=== PATIENT | female | born 1995 | race Caucasian/White ===

== ENCOUNTER 2023-12-24 08:00 | Outpatient (CLI) | payer OTHER ==
[2023-12-24 16:16] LABS: BILIRUBIN,URINE NEGATIVE (NEGATIVE); GLUCOSE, URINE (UA) NEGATIVE (NEGATIVE); KETONES,URINE (UA) NEGATIVE (NEGATIVE); LEUKOCYTE ESTERASE, URINE NEGATIVE (NEGATIVE); NITRITE,URINE NEGATIVE (NEGATIVE); OCCULT BLOOD,URINE NEGATIVE (NEGATIVE); PROTEIN,URINE NEGATIVE (NEGATIVE); UROBILINOGEN,URINE 0.2 (NORMAL) E.U./dL (NORMAL)
[2023-12-24 16:37] LABS: BACTERIA,URINE Many /HPF (None Seen); CLARITY,URINE CLEAR (CLEAR); RBC,URINE None Seen /HPF (0-5); SQUAMOUS EPITHELIAL CELL,UR MANY Squamous (<= Few); WBC,URINE 0-3 /HPF (0-5)
== END 2023-12-24 23:59 | disposition home or self-care (01) ==
LOC: LAB.WC 08:00
PROVIDERS: ATTEND Obstetrics & Gynecology
DX: Z34.90 Encounter for supervision of normal pregnancy, unspecified, unspecified trimester (principal)
CPT/HCPCS: 81001; 87086

== ENCOUNTER 2023-12-31 06:43 | Outpatient (CLI) | payer OTHER ==
--- NOTE | 2023-12-31 12:42 | Ultrasound Report ---
PROCEDURE: OB 1st Trimester w/TV INDICATIONS: POSITIVE TEST OUTSIDE/PRIOR DATING DATA: Last menstrual period (LMP): 11/12/2023. LMP-based estimated date of delivery (MIROSLAVA): 08/18/2024. First dating scan (date and location): Today's exam. Estimated date of delivery (MIROSLAVA) from first dating scan: 08/19/2024. TECHNIQUE: Real-time scanning was performed of the fetus and maternal pelvic organs, with image documentation. Endovaginal scanning was also performed to better visualize the fetus and maternal ovaries. COMPARISON: None. FINDINGS: Intrauterine gestational sac present. Embryo: Present, measuring 0.9 cm, corresponding to 6 weeks 6 days. Heart rate: 137 bpm. Other: No perigestational fluid collection. Measurement variability in dating: +/- 4 weeks by LMP, +/- 7 days by mean sac diameter (use before 6 weeks gestation if crown-rump length not able to be measured), +/- 5 days by crown-rump length (6-12 weeks gestation). Maternal organs: Ovaries appear within normal limits. IMPRESSION: Single living intrauterine at 6 weeks 6 days, MIROSLAVA of 08/19/2024 based on today's exam. Reviewed by: Humble Leiva MD on 12/31/2023 12:41 PM PDT Approved by: Humble Leiva MD on 12/31/2023 12:41 PM PDT Station ID: [id number]
== END 2023-12-31 06:44 | disposition home or self-care (01) ==
LOC: DI 06:43
PROVIDERS: ATTEND Obstetrics & Gynecology
DX: Z34.91 Encounter for supervision of normal pregnancy, unspecified, first trimester (principal)

== ENCOUNTER 2024-01-18 16:11 | Outpatient (CLI) | payer OTHER ==
[2024-01-18 20:35] LABS: BASOPHILS % (AUTO) 0.4 %; EOSINOPHILS % (AUTO) 0.5 %; HCT - HEMATOCRIT 41.1 % (37.0-47.0); HGB - HEMOGLOBIN 13.2 g/dL (12.0-16.0); LYMPHOCYTES # (AUTO) 1.6 10^3/uL (1.5-3.5); LYMPHOCYTES % (AUTO) 21.8 %; MEAN CORPUSCULAR HGB CONC 32.1 g/dL (32.0-36.0); MEAN CORPUSCULAR VOLUME 87.1 fL (81.0-99.0); MEAN PLATELET VOLUME 10.1 fL (7.9-10.8); MONOCYTES # (AUTO) 0.5 10^3/uL (0.0-1.0); MONOCYTES % (AUTO) 6.7 %; NEUTROPHILS # (AUTO) 5.3 10^3/uL (1.5-6.6); NEUTROPHILS % (AUTO) 70.3 %; PLT - PLATELET COUNT 320 10^3/uL (130-450); RED BLOOD COUNT 4.72 10^6/uL (4.20-5.40); RED CELL DISTRIBUTION WIDTH 13.3 % (12.0-15.0); WHITE BLOOD COUNT 7.5 x10^3/uL (4.8-10.8)
== END 2024-01-18 16:12 | disposition home or self-care (01) ==
LOC: LAB.N 16:11
PROVIDERS: ATTEND Obstetrics & Gynecology
DX: Z34.90 Encounter for supervision of normal pregnancy, unspecified, unspecified trimester (principal)
CPT/HCPCS: 36415; 85025; 86592; 86762; 86787; 86803; 86850; 86900; 86901; 87340; 87389

== ENCOUNTER 2024-02-18 08:00 | Outpatient (CLI) | payer OTHER ==
[2024-02-18 20:25] LABS: CHLAMYDIA TRACHOMATIS DNA NEGATIVE (NEGATIVE); NEISSERIA GONORRHOEAE DNA NEGATIVE (NEGATIVE); TRICHOMONAS VAGINALIS DNA NEGATIVE (NEGATIVE)
== END 2024-02-18 23:59 | disposition home or self-care (01) ==
LOC: LAB.WC 08:00
PROVIDERS: ATTEND Obstetrics & Gynecology
DX: Z11.3 Encounter for screening for infections with a predominantly sexual mode of transmission (principal)
CPT/HCPCS: 87491; 87591; 87661

== ENCOUNTER 2024-04-05 07:53 | Outpatient (CLI) | payer OTHER ==
--- NOTE | 2024-04-05 21:20 | Ultrasound Report ---
PROCEDURE: OB Anatomy Scan INDICATIONS: SUPERVISION OF OUTSIDE/PRIOR DATING DATA: Last menstrual period (LMP): 11/12/2023. LMP-based estimated date of delivery (MIROSLAVA): 08/18/2024. First dating scan (date and location): 12/31/2023. Estimated date of delivery (MIROSLAVA) from first dating scan: 08/19/2024. The below data below was generated using the clinical MIROSLAVA of 08/18/2024 TECHNIQUE: Real-time scanning was performed of the fetus, with image documentation and biometric measurements. COMPARISON: OB ultrasound 12/31/2023 FINDINGS: General: A single living intrauterine gestation is present. Presentation: Breech Placenta: Placental position is anterior, without previa. Questionable marginal placenta. Amniotic fluid index: 15.8 cm, within normal limits for gestational age. heart rate: 153 beats per minute. Maternal cervical canal: 5.6 cm long; normal length is 2.5 cm or more. biometrics: Biparietal diameter: 5.3 cm 20 weeks 1 day 94th percentile Head circumference: 19.3 cm 21 weeks 4 days 77th percentile Abdominal circumference: 16.2 cm 21 weeks 2 days 62nd percentile Femur length: 3.5 cm 21 weeks 0 days 51st percentile Estimated gestational age from initial scan: 20 weeks 5 days Composite gestational age from present scan: 21 weeks 4 days Estimated weight and percentile: 408 g 73rd percentile Measurement variability in biometric dating: +/- 10 days from 12-20 weeks gestation, +/- 2 weeks from 20-30 weeks gestation, +/- 3 weeks at 30 weeks gestation or later. Anatomic survey: Neuro: Ventricles are normal at less than 10 mm. Cisterna magna is normal at 3-11 mm. Cerebellum i s normal in size and morphology. Nuchal skin fold: Normal at less than 6 mm between 14 and 20 weeks gestational age. Face: Nose and lips, facial profile are normal. Spine: No evidence for spina bifida. Heart: 4-chambered heart is present, with normal ventricular outflow tracts. Diaphragm: Diaphragm is intact. Stomach: Left-sided stomach is present. Kidneys: No hydronephrosis. Normal is less than 5 mm in 2nd trimester, less than 7 mm in 3rd trimester. Cord: 3 vessel cord has orthotopic insertion. Bladder: Normal in size. Extremities: All 4 extremities are visualized. IMPRESSION: Single live intrauterine with gestational age of 21 weeks 4 days. Anatomy is within normal limits. Questionable marginal placenta. Reviewed by: Niesha Vance MD on 04/05/2024 9:19 PM PDT Approved by: Niesha Vance MD on 04/05/2024 9:19 PM PDT Station ID: [id number]
== END 2024-04-05 07:54 | disposition home or self-care (01) ==
LOC: DI 07:53
PROVIDERS: ATTEND Obstetrics & Gynecology
DX: Z34.92 Encounter for supervision of normal pregnancy, unspecified, second trimester (principal)

== ENCOUNTER 2024-04-11 11:20 | Outpatient (CLI) | payer OTHER | END 2024-04-11 11:21 | disposition home or self-care (01) | LOC: LAB.N 11:20 | PROVIDERS: ATTEND Obstetrics & Gynecology | DX: Z34.90 Encounter for supervision of normal pregnancy, unspecified, unspecified trimester (principal); Z36.0 Encounter for antenatal screening for chromosomal anomalies | CPT/HCPCS: 36415; 81511 ==

== ENCOUNTER 2024-05-21 14:53 | Outpatient (CLI) | payer OTHER ==
--- NOTE | 2024-05-21 23:49 | Ultrasound Report ---
PROCEDURE: OB Limited INDICATIONS: PLACENTA PREVIA OUTSIDE/PRIOR DATING DATA: Last menstrual period (LMP): 11/12/2023. LMP-based estimated date of delivery (MIROSLAVA): 08/18/2024. First dating scan (date and location): 12/31/2023. Estimated date of delivery (MIROSLAVA) from first dating scan: 08/19/2024. The below data below was generated using the clinical MIROSLAVA of 08/18/2024 TECHNIQUE: Real-time scanning was performed of the fetus, with image documentation. Endovaginal scanning: Not performed COMPARISON: 04/05/2024 FINDINGS: A single living intrauterine gestation is present. Presentation: Breech Placenta: Placental position is anterior, without previa. Amniotic fluid index: 20.1 cm, 86th percentile for gestational age. Largest vertical pocket measured is 6.3 cm heart rate: 136 beats per minutes. Maternal cervical canal: 6.1 cm long; normal length is 2.5 cm or more. Estimated gestational age from initial scan: 27 weeks and 2 days. IMPRESSION: Single living intrauterine gestation with estimated gestational age of approximately 27 weeks and 2 d ays. No evidence for placental previa. Reviewed by: Manjit Love MD on 05/21/2024 11:47 PM PDT Approved by: Manjit Love MD on 05/21/2024 11:47 PM PDT Station ID: [id number]
== END 2024-05-21 14:54 | disposition home or self-care (01) ==
LOC: DI 14:53
PROVIDERS: ATTEND Obstetrics & Gynecology
DX: O44.02 Complete placenta previa NOS or without hemorrhage, second trimester (principal); Z3A.27 27 weeks gestation of pregnancy

== ENCOUNTER 2024-05-23 15:59 | Outpatient (CLI) | payer OTHER ==
[2024-05-23 21:10] LABS: HCT - HEMATOCRIT 36.4 % (37.0-47.0); HGB - HEMOGLOBIN 11.9 g/dL (12.0-16.0); MEAN CORPUSCULAR HEMOGLOBIN 28.9 pg (27.0-31.0); MEAN CORPUSCULAR HGB CONC 32.7 g/dL (32.0-36.0); MEAN CORPUSCULAR VOLUME 88.3 fL (81.0-99.0); MEAN PLATELET VOLUME 10.3 fL (7.9-10.8); RED BLOOD COUNT 4.12 10^6/uL (4.20-5.40); WHITE BLOOD COUNT 10.1 x10^3/uL (4.8-10.8)
[2024-05-25 03:11] LABS: RPR Non Reactive (Non Reactive)
== END 2024-05-23 16:00 | disposition home or self-care (01) ==
LOC: LAB.N 15:59
PROVIDERS: ATTEND Obstetrics & Gynecology
DX: O09.892 Supervision of other high risk pregnancies, second trimester (principal)
CPT/HCPCS: 36415; 82950; 85027; 86592; 86850

== ENCOUNTER 2024-08-17 17:19 | Inpatient (IN) ==
[2024-08-17] MEDS ORDERED: OXYTOCIN 10 UNIT/ML VIAL IM PRN (17:57)
[2024-08-17] MEDS ORDERED: NIFEdipine 10 MG CAPSULE PO PRN (17:57)
[2024-08-17] MEDS ORDERED: LABETALOL 20 MG/4 ML SYRINGE IVP PRN ×3 (17:57)
[2024-08-17] MEDS ORDERED: fentaNYL 100 MCG/2 ML VIAL IVP PRN (17:57)
[2024-08-17] MEDS ORDERED: hydrALAZINE INJ 20 MG/ML VIAL IVP PRN ×2 (17:57)
[2024-08-17] MEDS ORDERED: lidocaine 1% 20 ML MDV ID PRN (17:57)
[2024-08-17] MEDS ORDERED: CARBOPROST TROMETHAMINE 250 MCG/ML VIAL IM PRN (17:57)
[2024-08-17] MEDS ORDERED: SODIUM CHLORIDE FLUSH 0.9% 10 ML SYRINGE IVP PRN (17:57)
[2024-08-17] MEDS ORDERED: ONDANSETRON ODT 4 MG TABLET TL PRN (17:57)
[2024-08-17] MEDS ORDERED: TRANEXAMIC ACID IN NACL 1,000 MG/100 ML BAG IV PRN (17:57)
[2024-08-17] MEDS ORDERED: OXYTOCIN/SODIUM CHLORIDE 500 ML IV PRN (17:57)
[2024-08-17 18:32] LABS: BASOPHILS % (AUTO) 0.3 %; EOSINOPHILS # (AUTO) 0.1 10^3/uL (0.0-0.7); EOSINOPHILS % (AUTO) 1.3 %; HCT - HEMATOCRIT 35.6 % (37.0-47.0); HGB - HEMOGLOBIN 11.2 g/dL (12.0-16.0); LYMPHOCYTES # (AUTO) 1.8 10^3/uL (1.5-3.5); LYMPHOCYTES % (AUTO) 19.4 %; MEAN CORPUSCULAR HEMOGLOBIN 26.2 pg (27.0-31.0); MEAN CORPUSCULAR HGB CONC 31.5 g/dL (32.0-36.0); MEAN CORPUSCULAR VOLUME 83.4 fL (81.0-99.0); MEAN PLATELET VOLUME 11.4 fL (7.9-10.8); MONOCYTES # (AUTO) 0.7 10^3/uL (0.0-1.0); MONOCYTES % (AUTO) 7.2 %; NEUTROPHILS # (AUTO) 6.5 10^3/uL (1.5-6.6); NEUTROPHILS % (AUTO) 71.3 %; PLT - PLATELET COUNT 265 10^3/uL (130-450); RED BLOOD COUNT 4.27 10^6/uL (4.20-5.40); RED CELL DISTRIBUTION WIDTH 14.4 % (12.0-15.0); WHITE BLOOD COUNT 9.1 x10^3/uL (4.8-10.8)
[2024-08-17 18:45] LABS: ALBUMIN 3.5 g/dL (3.2-5.5); ALBUMIN/GLOBULIN RATIO 1.5 (1.0-2.2); BILIRUBIN,TOTAL 0.3 mg/dL (0.2-1.0); CREATININE 0.5 mg/dL (0.6-1.3); POTASSIUM 3.6 mmol/L (3.5-4.5); TOTAL PROTEIN 5.9 g/dL (6.4-8.9)
[2024-08-17] MEDS ORDERED: miSOPROStoL 100 MCG TABLET ONE (19:49)
[2024-08-17] MEDS: miSOPROStoL 100 MCG TABLET VG SCH (19:57)
--- NOTE | 2024-08-17 22:13 | HISTORY & PHYSICAL EXAMINATION ---
Admit History Smoking Status: Never smoker Other Maternal History Other Maternal History: HPI: Gale is a 29 yo at 39w6d who is admitted for elective IOL. She was seen in clinic on day of admission. SVE closed, cephalic presentation confirmed. Discussed risks/benefits of elective IOL and consents were reviewed and signed. She declines contractions, LOF, VB. + FM. 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 Has training out of town in September. 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 Heart Flutters: Likely physiologic changes. Will assess if they happen more. Only last seconds and resolve when she 'Coughs them out" Pre- Weight:131.0 BMI: 24.05 Blood type: A+ Antibody: negative CBC: PLT 320 HCT 41.1 HGB 13.2 RUB: immune VZV: immune HBsAg: negative HepC: N-R RPR/AB-EIA:N-R HIV: N-R PAP:late 2020 - normal GC/CT: Recollected 02/17- Negative HSV:Denies in self and partner Genetic testing: quad screen neg 04/11 Covid: Flu: 07/06 FAS: 04/05/2024 Placenta: Anterior; placenta previa, right at edge of cervix. 05/21 placenta no longer a previa or even low. Cord: 3VC ADIS: 15.8 cm EFW: 408g/ 73rd%tile RPR- NR 50gm OGCT:77 TDAP: 06/08 Breast Pump: 06/08 3rd trimester H/H 11.9/36.4 PLT 292 GBS: Negative RSV 07/06/2024 Delivery plan: Contraception: condoms/ or possibly Nexplanon PE: Vitals signs reviewed in [facility]: NAD Resp: non labored respirations Abd: gravid, non tender. EFW 3400-3600g Ext: minimal LE edema monitoring on admission: FHTs: 130s bpm baseline, + accel, - decel, mod variability Ladd: 1-3 min vs irritability, pt not feeling contractions FHTs: Cat 1 Labs: admission CBC, CMP, T&S reviewed A/P: 29 yo at 39w6d who is admitted for elective IOL. - Elective IOL - GBS neg - Rh + - Rubella immune - Varicella immune - We have discussed options for initiating IOL, plan for vaginal misoprostol and will reassess in the AM or sooner PRN. We have also discussed possible use of cervical ripening balloon, pitocin, and AROM. - Pain management per patient request Kip Salmeron MD HPI Current : Vital Signs Temperature 98.2 F 08/17/24 18:00 Pulse Rate 82 08/17/24 18:00 Respiratory Rate 18 08/17/24 18:00 Blood Pressure 122/77 08/17/24 18:00 Temperature 98.2 F 08/18/24 08:27 Pulse Rate 79 08/18/24 08:27 Respiratory Rate 16 08/18/24 08:27 Blood Pressure 107/66 08/18/24 08:27 O2 Saturation 97 08/18/24 08:27 Meds/Allgy Home Medications Ambulatory Orders Medication Instructions Recorded Confirmed acetaminophen 325 mg tablet 325 mg PO Q6H PRN 07/20/24 08/17/24 (Tylenol) multivitamin (Daily Multi-Vitamin 1 tab PO QDAY 07/20/24 08/17/24 tablet) psyllium husk (aspartame) 3 gram 1 packet PO QDAY 07/20/24 08/17/24 oral powder packet (Daily Fiber (psyllium-aspartame)) Allergies Allergies Allergy/AdvReac Type Severity Reaction Status Date / Time Penicillins Allergy Intermediate Rash Verified 07/20/24 13:15 [facility] Medical History Medical History (Updated 08/10/24 @ 10:01 by Suly Schilling MD) Thyroid disorder (11/12/23) Surgical History Surgical History (Updated 07/20/24 @ 13:24 by Merced Azul MA) [place] teeth extracted 2012 Social History Social History (Updated 07/20/24 @ 13:25 by Merced Azul MA) Smoking Status: Never smoker Do you vape?: No Patient requests smoking cessation consult: No Initiate information on smoking cessation: No Living arrangement: At home Living Condition: With spouse/s.o. Support Person: Yes Relationship: Spouse Physical Abdominal Exam Vital Signs: Temp Pulse Resp BP Pulse Ox 98.2 F 79 16 107/66 97 08/18/24 08:27 08/18/24 08:27 08/18/24 08:27 08/18/24 08:27 08/18/24 08:27 Plan for Labor Plan For Labor I expect patient to be DC'd or transferred within 96 hours.: Yes Conclusion/Plan Lab Results 08/17/24 18:25 08/17/24 18:15
[2024-08-18] MEDS: SODIUM CHLORIDE FLUSH 0.9% 10 ML SYRINGE IVP SCH (08:23)
--- NOTE | 2024-08-18 10:47 | PROVIDER PROGRESS NOTE ---
Labor Progress Note Labor Progress Note Labor Progress Note/Additional Text: S: Jasmin is feeling a little more uncomfortable with contractions. Discussed proceeding with cervical ripening balloon and she is in agreement. [facility] 1.5/30/-3, moderate, mid position Speculum exam performed for placement of cervical ripening balloon, placed without difficulty, 80cc in uterine balloon, 40cc in vaginal balloon. She did tolerate well. monitoring: FHTs: 150s bpm baseline, + accel, + late decelerations (positional, when lying flat on back for balloon placement), mod variability [place]: 1-5 min Cat 2, overall reassuring A/P: 29 yo at 40w0d undergoing elective IOL: - S/p vaginal misoprostol overnight (100ug). Cervical ripening balloon placed, plan to remove in 12 hrs, will reassess if falls out earlier. We have discussed possibly starting pitocin if contractions space out. - Late decelerations resolve with repositioning, will continue to monitor - Pain management per her request. Kip Salmeron MD
--- NOTE | 2024-08-18 12:08 | PHARMACY PROGRESS NOTE ---
Best Possible Medication History Admit Date and Time: 08/17/24 1757 Home Medications Medication Instructions Recorded Confirmed Type acetaminophen 325 mg tablet 325 mg PO Q6H PRN fever or pain 07/20/24 08/18/24 History (Tylenol) polyethylene glycol 3350 17 gram 17 g PO DAILY PRN constipation 08/18/24 History oral powder packet (Miralax) Processed by: Pharmacy Medications reviewed in ED?: No Medication History completed: Yes Patient Interview: Completed (by nursing staff as patient was otherwise occupied) Secondary Source(s): Insurance records [facility] Statement: As the person ultimately responsible for medication therapy, providers are able to order a medication from an existing home medication list in [facility] via the "Reconcile Routine" prior to Confirmation of that medication by geophysical support specialist. Such practice is discouraged except when the physician, in their clinical judgment, deems that a medical need exists for a medication without regard to previous use.
--- NOTE | 2024-08-18 13:32 | ANESTHESIA PROCEDURE NOTE ---
Pre-Anesthesia VS, & Labs Diagnosis Surgical Diagnosis:: Active labor Procedure Procedure: vaginal delivery Vitals Vital Signs: Temp Pulse Resp BP Pulse Ox 36.6 C 50 L 16 126/71 97 08/18/24 11:14 08/18/24 11:14 08/18/24 11:14 08/18/24 11:14 08/18/24 08:27 Height (in): 5 ft 3 in Weight (kg): 75 kg Body Mass Index: 29.2 BMI Classification: Overweight NPO NPO: Other (clear liquids during labor) Is Patient ?: Yes Estimated Due Date:: 08/18/24 Comments:: Lab Results Current Lab Results: Laboratory Tests 08/17/24 18:25: WBC 9.1, RBC 4.27, Hgb 11.2 L, Hct 35.6 L, MCV 83.4, MCH 26.2 L, MCHC 31.5 L, RDW 14.4, Plt Count 265, MPV 11.4 H, Neut # (Auto) 6.5, Lymph # (Auto) 1.8, [place] # (Auto) 0.7, Eos # (Auto) 0.1, Baso # (Auto) 0.0, Absolute Nucleated RBC 0.00, Nucleated RBC % 0.0 08/17/24 18:15: Sodium 135, Potassium 3.6, Chloride 108, Carbon Dioxide 21, Anion Gap 6.0, BUN 15, Creatinine 0.5 L, Estimated GFR (MDRD) 146, Glucose 98, Calcium 9.0, Total Bilirubin 0.3, AST 18, ALT 13, Alkaline Phosphatase 161 H, T otal Protein 5.9 L, Albumin 3.5, Globulin 2.4, Albumin/Globulin Ratio 1.5, Blood Type A POSITIVE, Antibody Screen NEGATIVE Lab results reviewed: Yes 08/17/24 18:25 08/17/24 18:15 Meds/Allgy Home Medications Ambulatory Orders Medication Instructions Recorded Confirmed acetaminophen 325 mg tablet 325 mg PO Q6H PRN fever or pain 07/20/24 08/18/24 (Tylenol) polyethylene glycol 3350 17 gram 17 g PO DAILY PRN constipation 08/18/24 08/18/24 oral powder packet (Miralax) Allergies Allergies Allergy/AdvReac Type Severity Reaction Status Date / Time Penicillins Allergy Intermediate Rash Verified 07/20/24 13:15 [facility] Medical History Medical History Thyroid disorder (11/12/23) Surgical History Surgical History [place] teeth extracted 2012 Social History Social History Smoking Status: Never smoker Do you vape?: No Patient requests smoking cessation consult: No Initiate information on smoking cessation: No Living arrangement: At home Living Condition: With spouse/s.o. Support Person: Yes Relationship: Spouse Anesthesia Exam (Expanded) Exam General: Alert, Oriented x3 and Cooperative Mouth Openin Fingerbreadth Neck Mobility: Normal Mallampati classification: II Thyromental Distance: 4-6 cm Mental/Cognitive Status: Alert/Oriented X3 and Normal for patient Plan Plan Anesthesia Type: Epidural Consent for Procedure(s) Verified and Reviewed: Yes Code Status: Attempt Resuscitation ASA Classification ASA classification: 2-Mild systemic disease Is this case an emergency?: No
[2024-08-18] MEDS ORDERED: LIDOCAINE 2%-EPI 1:100000 20 ML MDV ONE (13:41)
[2024-08-18] MEDS ORDERED: ROPIVACAINE 0.2% 200 MG/100 ML BAG EP ONE (13:41)
[2024-08-18] MEDS ORDERED: fentaNYL 100 MCG/2 ML VIAL ONE (13:41)
[2024-08-18] MEDS: LACTATED RINGERS 1,000 ML IV PRN ×2 (14:56→14:58)
[2024-08-18] MEDS: diphenhydrAMINE INJ 50 MG/ML VIAL IVP ONE (16:30)
[2024-08-18] MEDS: OXYTOCIN/SODIUM CHLORIDE 500 ML IV SCH (18:44)
[2024-08-18] MEDS: ROPIVACAINE 0.2% 200 MG/100 ML BAG EP PRN (19:57)
[2024-08-18] MEDS: ACETAMINOPHEN 325 MG TABLET PO PRN (20:35)
--- NOTE | 2024-08-18 20:41 | PROVIDER PROGRESS NOTE ---
Labor Progress Note Labor Progress Note Labor Progress Note/Additional Text: Jasmin was evaluated at 1604 and found to be 6cm, checked again 2 hours later and still 6cm. We discussed placement of IUPC and augmentation with pitocin and she was in agreement. She has now progressed to complete dilation and + 2 station, plan to start pushing. FHTs Cat 2 with intermittent periods of late decelerations which improve with repositioning and fluid bolus. She has recently had an elevated temperature of 100.2. If progresses to a fever, will plan to start antibiotics. Kip Salmeron MD
[2024-08-18] MEDS: ONDANSETRON 4 MG/2 ML VIAL IVP PRN (21:07)
[2024-08-18] MEDS: SODIUM CHLORIDE 0.9% IV SCH (21:11)
[2024-08-18] MEDS: GENTAMICIN IV SCH (21:11)
[2024-08-18] MEDS ORDERED: CLINDAMYCIN 900 MG/50 ML 900 MG/50 ML BAG IV ONE (21:29)
[2024-08-18] MEDS: CLINDAMYCIN 900 MG/50 ML 50 ML IV SCH (21:32)
[2024-08-18] MEDS: METHYLERGONOVINE 0.2 MG/ML VIAL IM PRN (22:36)
[2024-08-18] MEDS: miSOPROStoL 200 MCG TABLET BC PRN (22:41)
[2024-08-18] MEDS ORDERED: LABETALOL 5 MG/1 ML 20 ML MDV IVP PRN (22:54)
[2024-08-18] MEDS ORDERED: NALOXONE 0.4 MG/ML VIAL IVP PRN (22:54)
[2024-08-18] MEDS ORDERED: OXYTOCIN/SODIUM CHLORIDE 500 ML IV PRN (22:54)
[2024-08-18] MEDS ORDERED: NIFEdipine 10 MG CAPSULE PO PRN (22:54)
[2024-08-18] MEDS ORDERED: LABETALOL 20 MG/4 ML SYRINGE IVP PRN ×2 (22:54)
[2024-08-18] MEDS ORDERED: SIMETHICONE CHEW 80 MG TABLET PO PRN (22:54)
[2024-08-18] MEDS ORDERED: oxyCODONE 5 MG TABLET PO PRN (22:54)
[2024-08-18] MEDS ORDERED: hydrALAZINE INJ 20 MG/ML VIAL IVP PRN ×2 (22:54)
--- NOTE | 2024-08-18 23:05 | DELIVERY NOTE ---
Delivery Note Labor Labor: positive Other (elective IOL with misoprostol, followed by cervical ripening balloon. SROM followed by augmentation with pitocin.) Delivery Method Delivery Method: positive Spontaneous vaginal delivery Cervical Ripening Method Cervical Ripening Method: positive Balloon device and Misoprostil Presentation Presentation: positive Vertex and VAMSI - left occiput anterior Nuchal Cord Nuchal Cord: positive None Amniotic Fluid Description Amniotic Fluid Description: positive Clear Episiotomy Type Episiotomy Type: positive None Laceration Laceration: positive 1st degree and Labial (right) Suture Suture Type: positive Other (Rapide) Suture Size: positive 3-0 Delivery Outcome Delivery Outcome: positive Livebirth [place]: positive Placed in direct skin contact with mother, Stimulated and Warmed [place] sex: positive Male Cord Cord: positive 3 vessels Placenta Placenta: positive Intact and Spontaneous Estimated Blood Loss Estimated Blood Loss (in cc): 394 Delivery Comments (Free Text/Narrative) Delivery Comments (Free Text/Narrative): I was called to the bedside for patient complete and ready to start pushing. Ju st after starting pushing, Jasmin had a fever to 100.8, along with tachycardia. Gentamycin/Clindamycin started for chorioamnionitis. She pushed with excellent effort and steady descent. The anterior shoulder delivered easily with maternal effort and gentle downward pressure followed by the remainder of the body. The was placed on the mother's abdomen. After 60 sec the cord was clamped times two and cut. Cord blood collected. Pitocin was started. The placenta was delivered intact. Intermittent oozing and lower uterine segment atony was noted and IM methergine followed by 600mcg [place] misoprostol was given. The right labial laceration was repaired with 3-0 Vicryl Rapide. The 1st degree laceration was repaired with figure of eight stitch of 3-0 Vicryl Rapide. Perineal hemostasis noted at completion of procedure. Kip Salmeron MD
[2024-08-19] MEDS: IBUPROFEN 600 MG TABLET PO PRN (00:09)
[2024-08-19] MEDS ORDERED: CLINDAMYCIN 900 MG/50 ML 900 MG/50 ML BAG IV ONE (02:24)
[2024-08-19] MEDS: ACETAMINOPHEN 500 MG TABLET PO PRN (02:29)
[2024-08-19] MEDS: CLINDAMYCIN 900 MG/50 ML 900 MG/50 ML BAG IV SCH (05:37)
[2024-08-19] MEDS: DOCUSATE SODIUM 100 MG CAPSULE PO SCH (09:14)
--- NOTE | 2024-08-19 10:02 | PROVIDER PROGRESS NOTE ---
Subjective Prog Note Date Prog Note Date: 08/19/24 Prog Note Time: 09:49 Subjective Subjective: Jasmin is PPD #1 s/p late last evening. She is feeling very well this morning. She denies perineal pain or swelling. Bleeding has been decreasing. She has been up and ambulating without lightheadedness or dizzines. She is breast-feeding with adequate support. No concerns or questions at this time. Current Medications Current Medications Current Medications: Current Medications Generic Name Dose Route Start Last Admin Trade Name Demarco PRN Reason Stop Dose Admin Acetaminophen 1,000 mg 08/18/24 22:54 08/19/24 02:29 Acetaminophen 500 Mg Tablet PO 1,000 mg Q8HR PRN Administration Mild Pain or Fever>38C(100.4F) Carboprost Tromethamine 250 mcg 08/17/24 17:57 Carboprost Tromethamine 250 Mcg/Ml Vial IM 08/22/24 17:57 Q15M PRN Step 4: Hemorrhage protocol Docusate Sodium 100 mg 08/19/24 09:00 08/19/24 09:14 Docusate Sodium 100 Mg Capsule PO 100 mg BID MABEL Administration Hydralazine HCl 5 - 20 mg 08/17/24 17:57 Hydralazine Inj 20 Mg/Ml Vial IVP Q20M PRN SBP >160 or DBP >110 Protocol Hydralazine HCl 10 mg 08/17/24 17:57 Hydralazine Inj 20 Mg/Ml Vial IVP 08/22/24 17:57 .ONCE PRN Step 9 of Labetalol protocol Protocol Hydralazine HCl 10 mg 08/18/24 22:54 Hydralazine Inj 20 Mg/Ml Vial IVP .ONCE PRN SBP> or= 160 OR DBP> or= 110 Protocol Hydralazine HCl 5 - 10 mg 08/18/24 22:54 Hydralazine Inj 20 Mg/Ml Vial IVP Q20M PRN SBP >=160 and/or DBP >=110 Protocol Lactated Ringer's 1,000 mls @ 100 mls/hr 08/17/24 17:57 08/19/24 01:00 Lr IV 0 mls/hr .Q10H PRN Infusion Save for active labor Lactated Ringer's 1,000 mls @ 999 mls/hr 08/17/24 17:57 08/19/24 02:33 Lr IV 08/20/24 17:56 Infused ONCE PRN Infusion distress Clindamycin/Sodium Chloride 900 mg in 50 mls @ 50 mls/hr 08/19/24 05:30 08/19/24 06:39 Cleocin 900 Mg/50 Ml IV 08/19/24 14:29 Infused Q8H MABEL Infusion Ibuprofen 600 mg 08/18/24 22:54 08/19/24 05:38 Ibuprofen 600 Mg Tablet PO 600 mg Q6HR PRN Administration Moderate Pain (Level 4-6) Labetalol HCl 20 - 80 mg 08/17/24 17:57 Labetalol 20 Mg/4 Ml Syringe IVP Q10M PRN SBP >160 or DBP >110 Protocol Labetalol HCl 20 mg 08/17/24 17:57 Labetalol 20 Mg/4 Ml Syringe IVP 08/22/24 17:57 .ONCE PRN Step 9 of nifedipine protocol Protocol Labetalol HCl 40 mg 08/17/24 17:57 Labetalol 20 Mg/4 Ml Syringe IVP 08/22/24 17:57 .ONCE PRN Step 9 of hydrALAZine protocol Protocol Labetalol HCl 20 - 80 mg 08/18/24 22:54 Labetalol 5 Mg/1 Ml 20 Ml Mdv IVP Q10M PRN SBP> or= 160 OR DBP> or= 110 Protocol Labetalol HCl 20 - 40 mg 08/18/24 22:54 Labetalol 20 Mg/4 Ml Syringe IVP Q10M PRN SBP> or= 160 OR DBP> or= 110 Protocol Labetalol HCl 20 mg 08/18/24 22:54 Labetalol 20 Mg/4 Ml Syringe IVP .ONCE PRN SBP >=160 and/or DBP >=110 Protocol Lidocaine HCl 20 ml 08/17/24 17:57 Lidocaine 1% 20 Ml Mdv ID 08/22/24 17:57 .ONCE PRN PERINEAL REPAIR Nifedipine 10 - 20 mg 08/17/24 17:57 Nifedipine 10 Mg Capsule PO Q20M PRN SBP >160 or DBP >110 Protocol Nifedipine 10 - 20 mg 08/18/24 22:54 Nifedipine 10 Mg Capsule PO Q20M PRN SBP >=160 and/or DBP >=110 Protocol Ondansetron HCl 4 mg 08/17/24 17:57 08/18/24 21:07 Ondansetron 4 Mg/2 Ml Vial IVP 4 mg Q4HR PRN Administration Nausea / Vomiting Ondansetron HCl 4 mg 08/17/24 17:57 Ondansetron Odt 4 Mg Tablet TL Q4HR PRN Nausea / Vomiting Oxycodone HCl 5 mg 08/18/24 22:54 Oxycodone 5 Mg Tablet PO Q4HR PRN Severe Pain 6-10 Simethicone 80 mg 08/18/24 22:54 Simethicone Chew 80 Mg Tablet PO TID PRN Gas Sodium Chloride 10 ml 08/18/24 01:00 08/18/24 08:23 Sodium Chloride Flush 0.9% 10 Ml Syringe IVP 10 ml 0100,0900,1700 MABEL Administration Sodium Chloride 10 ml 08/17/24 17:57 Sodium Chloride Flush 0.9% 10 Ml Syringe IVP PRN PRN NEEDED PER PROVIDER ORDERS Objective Vital Signs/Intake & Output Reviewed Vital Signs: Yes Vital Signs: Vital Signs x48h Temp Pulse Resp BP Pulse Ox 08/19/24 09:00 36.7 C 57 L 16 111/59 L 08/19/24 04:20 37.4 C 62 17 112/54 L 95 Intake & Output: Intake & Output 08/17/24 08/18/24 08/19/24 08/20/24 05:59 05:59 05:59 05:59 Intake Total 400 / 400 3182.55 / 3182.55 50 / 50 Output Total 1255 / 1255 Balance 400 / 400 1927.55 / 1927.55 50 / 50 Weight (kg) 75.296 kg 75 kg Objective General Appearance: positive No acute distress Eyes Bilateral: positive Normal inspection Neck: positive Nml inspection Respiratory: positive Breath sounds nml Cardiovascular: positive Regular rate & rhythm Abdomen: positive Non-tender and Other (Uterine fundus firm at U+1; nontender) Skin: positive Color nml Extremities: positive Pedal edema (1+, pitting) Neurologic/Psychiatric: positive Oriented x3 and Mood/affect nml Lab Results 08/17/24 18:25 08/17/24 18:15 ABX Reporting Has patient been on IV antibiotics over the past 48 hours?: Yes Assessment/Plan Problem List (1) care following vaginal delivery: Impression: PPD #1 s/p following term induction of labor (initiated at 39+6 wks and delivered at 40 wks). Delivery notable for diagnosis of intra-amniotic infection (chorio) during second stage of labor. -A pos, Rubella/VZV immune, GBS neg, RPR neg. -Cont routine care and support. -Discussed contraception plans: does well on OCPs; discussed possible start with Minipill/Micronor then transition to combination OCP once adding food/formula to baby's diet. Will re-address this tomorrow. (2) Chorioamnionitis: Impression: Hx fever during second stage of labor. Afebrile since 08/18 at 2142, and uterus nontender. -S/p Gentamicin x 1 dose. -Cont Clindamycin 900 mg Q 8 hrs until 24 hrs afebrile (approx 2200 this evening). -Discussed plan to maintain inpatient until at least tomorrow evening to observe for recurrent infection after discontinuing antibiotics. Qualifiers: Fetus number: single or unspecified fetus Trimester: third trimester Q ualified Code(s): O41.1230 - Chorioamnionitis, third trimester, not applicable or unspecified
--- NOTE | 2024-08-19 11:50 | HISTORY & PHYSICAL EXAMINATION ---
[facility] Medical History Medical History Thyroid disorder (11/12/23) Surgical History Surgical History Shell teeth extracted 2012 Social History Social History Smoking Status: Never smoker Do you vape?: No Patient requests smoking cessation consult: No Initiate information on smoking cessation: No Living arrangement: At home Living Condition: With spouse/s.o. Support Person: Yes Relationship: Spouse History & Physical HPI - Maternal History: This is DOL# 1, HD# 2 for JOHN SMYTH [] born via at [birth year] 13:30 to a yo G 1 now P [] mom at wk EGA. Her has been complicated by [ ]. care at [ ]. Labor and Delivery: Time: Delivery Method: Presentation: Cord Presentation: Vessels: One Minute : Five Minute : Initial Resuscitation Efforts: Maternal Fever: Hours of Ruptured Membranes: Meconium: Family History: [ ] Social History: [ ] Vital Signs: 08/17/24 18:00 08/18/24 08:27 08/18/24 11:14 Temperature 36.8 C 36.8 C 36.6 C Pulse Rate 82 Pulse Rate [Brachial] 79 50 L Respiratory Rate 18 16 16 Blood Pressure 122/77 Blood Pressure [Left Brachial artery] 107/66 126/71 O2 Saturation 97 08/18/24 13:49 08/18/24 20:06 08/18/24 20:45 Temperature 36.6 C 37.9 C 38.2 C H Pulse Rate Pulse Rate [Brachial] 56 L 78 71 Respiratory Rate 16 18 18 Blood Pressure Blood Pressure [Left Brachial artery] 116/68 123/70 99/77 O2 Saturation 99 08/18/24 21:42 08/18/24 22:57 08/19/24 00:30 Temperature 38.7 C H 37.7 C Pulse Rate Pulse Rate [Brachial] 71 56 L 54 L Respiratory Rate 18 Blood Pressure Blood Pressure [Left Brachial artery] 127/58 L 137/68 H O2 Saturation 08/19/24 01:45 08/19/24 04:20 08/19/24 09:00 Temperature 37.8 C 37.4 C 36.7 C Pulse Rate Pulse Rate [Brachial] 52 L 62 57 L Respiratory Rate 18 17 16 Blood Pressure Blood Pressure [Left Brachial artery] 123/53 L 112/54 L 111/59 L O2 Saturation 98 95 Measurements: Weight (kg): , %ile for cGA Length (cm): cm, %ile for cGA OFC (cm): cm, %ile for cGA [place] Physical Exam: GEN: No acute distress, appears appropriate for EGA RESP: Lungs CTAB, no WOB or retractions on RA CV: RRR, no murmurs, normal perfusion, 2+ femoral pulses bilaterally HEENT: AFOF, + molding, no cephalohematoma, external ears w/o tags or pits, patent nares, hard palate intact, [red reflex seen b/l] NECK: No crepitus or concern for clavicular fx ABD: soft, nontender, nondistended, no masses or HSM. Normal 3 vessel umbilical cord w clamp in place : Normal external genitalia for , [testes descended bilaterally] RECTAL: Patent, no masses, no spinal chanel of hair or dimples NEURO: alert and interactive, good tone, +[place], +[employer] in all four extremities EXTR: Moving all extremities equally w FROM, no swelling or edema, negative Ortoloni/Leal b/l SKIN: No rashes or lesions, no jaundice Lab Results:: 08/17/24 18:15: Sodium 135, Potassium 3.6, Chloride 108, Carbon Dioxide 21, Anion Gap 6.0, BUN 15, Creatinine 0.5 L, Estimated GFR (MDRD) 146, Glucose 98, Calcium 9.0, Total Bilirubin 0.3, AST 18, ALT 13, Alkaline Phosphatase 161 H, Total Protein 5.9 L, Albumin 3.5, Globulin 2.4, Albumin/Globulin Ratio 1.5, Blood Type A POSITIVE, Antibody Screen NEGATIVE 08/17/24 18:25: WBC 9.1, RBC 4.27, Hgb 11.2 L, Hct 35.6 L, MCV 83.4, MCH 26.2 L, MCHC 31.5 L, RDW 14.4, Plt Count 265, MPV 11.4 H, Neut # (Auto) 6.5, Lymph # (Auto) 1.8, Bell # (Auto) 0.7, Eos # (Auto) 0.1, Baso # (Auto) 0.0, Absolute Nucleated RBC 0.00, Nucleated RBC % 0.0 Assessment: This is DOL# [ ], HD# [ ] for JOHN SMYTH [] born via at [birth year] 13:30 to a yo G 1 now P [] mom at wk EGA. Baby is transitioning well, has voided and stooled, and is feeding and bonding well. No concerns. Plan: Routine and couplet care with support. Peds outpatient follow up with []. Anticipated discharge date []. Medications: Acetaminophen (Acetaminophen 500 Mg Tablet) 1,000 mg PO Q8HR PRN PRN Reason: Mild Pain or Fever>38C(100.4F) Last Admin: 08/19/24 10:43 Dose: 1,000 mg Documented By: SC Admin: 08/19/24 02:29 Dose: 1,000 mg Documented By: LN Docusate Sodium (Docusate Sodium 100 Mg Capsule) 100 mg PO BID [facility] Last Admin: 08/19/24 09:14 Dose: 100 mg Documented By: SC Lactated Ringer's (Lr) 1,000 mls @ 100 mls/hr IV .Q10H PRN PRN Reason: Save for active labor Last Infusion: 08/19/24 01:00 Dose: 0 mls/hr Documented By: Admin: 08/18/24 19:58 Dose: 100 mls/hr Documented By: Infusion: 08/18/24 19:58 Dose: Infused Documented By: Admin: 08/18/24 14:58 Dose: 100 mls/hr Documented By: SC Lactated Ringer's (Lr) 1,000 mls @ 999 mls/hr IV ONCE PRN PRN Reason: distress Stop: 08/20/24 17:56 Last Infusion: 08/19/24 02:33 Dose: Infused Documented By: SC Infusion: 08/18/24 15:15 Dose: 100 mls/hr Documented By: SC Admin: 08/18/24 14:56 Dose: 999 mls/hr Documented By: SC Clindamycin/Sodium Chloride (Cleocin 900 Mg/50 Ml) 900 mg in 50 mls @ 50 mls/hr IV Q8H MABEL Stop: 08/19/24 14:29 Last Infusion: 08/19/24 06:39 Dose: Infused Documented By: Admin: 08/19/24 05:37 Dose: 50 mls/hr Documented By: LN Ibuprofen (Ibuprofen 600 Mg Tablet) 600 mg PO Q6HR PRN PRN Reason: Moderate Pain (Level 4-6) Last Admin: 08/19/24 05:38 Dose: 600 mg Documented By: Admin: 08/19/24 00:09 Dose: 600 mg Documented By: LN Ondansetron HCl (Ondansetron 4 Mg/2 Ml Vial) 4 mg IVP Q4HR PRN PRN Reason: Nausea / Vomiting Last Admin: 08/18/24 21:07 Dose: 4 mg Documented By: LN Sodium Chloride (Sodium Chloride Flush 0.9% 10 Ml Syringe) 10 ml IVP 0100,0900,1700 MABEL Last Admin: 08/18/24 08:23 Dose: 10 ml Documented By: SC Discontinued Medications Acetaminophen (Acetaminophen 325 Mg Tablet) 650 mg PO Q6H PRN PRN Reason: Mild Pain or Fever>38C(100.4F) Last Admin: 08/18/24 20:35 Dose: 650 mg Documented By: LN Diphenhydramine HCl (Diphenhydramine Inj 50 Mg/Ml Vial) 25 mg IVP ONCE ONE Stop: 08/18/24 17:01 Last Admin: 08/18/24 16:30 Dose: 25 mg Documented By: SC Ropivacaine (Naropin 0.2%) 200 mg in 100 mls @ 0 mls/hr EP PRN PRN; Protocol PRN Reason: PAIN Last Infusion: 08/18/24 22:17 Dose: 0 mls/hr Documented By: Admin: 08/18/24 19:57 Dose: 10 mls/hr Documented By: LN Oxytocin/Sodium Chloride (Pitocin/Sodium Chloride) 500 mls @ 1 mls/hr IV TITR MABEL; Protocol Last Titration: 08/19/24 03:10 Dose: Infused Documented By: LN Co-signed By: SOFIA Admin: 08/18/24 22:53 Dose: 125 milliunit/min, 125 mls/hr Documented By: WHITNEY Co-signed By: SOFIA Titration: 08/18/24 22:47 Dose: Infused Documented By: WHITNEY Co-signed By: SOFIA Titration: 08/18/24 22:17 Dose: 999 milliunit/min, 999 mls/hr Documented By: WHITNEY Co-signed By: SOFIA Titration: 08/18/24 20:22 Dose: 0 milliunit/min, 0 mls/hr Documented By: WHITNEY Co-signed By: SOFIA Titration: 08/18/24 19:15 Dose: 4 milliunit/min, 4 mls/hr Documented By: WHITNEY Co-signed By: SOFIA Admin: 08/18/24 18:44 Dose: 2 milliunit/min, 2 mls/hr Documented By: SC Co-signed By: KODI Gentamicin Sulfate 262 mg/ (Sodium Chloride) 106.55 mls @ 100 mls/hr IV Q24H [facility] Stop: 08/18/24 22:04 Last Infusion: 08/18/24 22:15 Dose: Infused Documented By: Admin: 08/18/24 21:11 Dose: 100 mls/hr Documented By: WHITNEY Clindamycin Phosphate (Cleocin 900 Mg/50 Ml) 50 mls @ 50 mls/hr IV Q8H [facility] Stop: 08/19/24 13:59 Last Infusion: 08/18/24 22:35 Dose: Infused Documented By: Admin: 08/18/24 21:32 Dose: 50 mls/hr Documented By: WHITNEY Methylergonovine Maleate (Methylergonovine 0.2 Mg/Ml Vial) 0.2 mg IM .ONCE PRN PRN Reason: Step 2: Hemorrhage protocol Stop: 08/22/24 17:57 Last Admin: 08/18/24 22:36 Dose: 0.2 mg Documented By: WHITNEY Misoprostol (Misoprostol 100 Mcg Tablet) 25 mcg VG Q4HR [facility] Last Admin: 08/18/24 11:08 Dose: Not Given Documented By: SC Admin: 08/18/24 05:16 Dose: 25 mcg Documented By: Admin: 08/18/24 00:01 Dose: 25 mcg Documented By: Admin: 08/17/24 19:57 Dose: 25 mcg Documented By: CEE Misoprostol (Misoprostol 200 Mcg Tablet) 800 mcg .ONCE PRN PRN Reason: Step 3: Hemorrhage protocol Stop: 08/22/24 17:57 Last Admin: 08/18/24 22:41 Dose: 600 mcg Documented By: WHITNEY [facility] [place] [address] Office
[2024-08-19] MEDS: CLINDAMYCIN 900 MG/50 ML 50 ML IV ONE (14:56)
[2024-08-20 05:47] VITALS: O2SAT 99
--- NOTE | 2024-08-20 11:50 | Discharge Summary ---
"Discharge Summary Admit Date: 08/17/24 Discharge Date: 08/20/24 Discharging Provider: Dr. Krysta Carney Primary Care Provider: Dr. Paradise Gupta Code Status: Attempt Resuscitation Discharge Facility [facility]: [facility] DIAGNOSES Admission Diagnoses: Term , planned induction Discharge Diagnoses with Status of Each Condition: 1) Same, now s/p spontaneous vaginal delivery 2) Resolved intra-amniotic infection HPI History of Present Illness: Ms. Cruz is a 29 yo G2 now P2, admitted for term induction of labor at 39+6 wks. uncomplicated. Blood type: A pos Rubella and Varicella: Immune GBS: Neg Contraception: Considering IUD insertion at PP visit (Mirena most likely) CONSULTS | PROCEDURES Consultations: None Procedures: Induction of labor Spontaneous vaginal delivery Epidural Repair of labial laceration IV antibiotics HOSPITAL COURSE Hospital Course: Induction progressed following misoprostol and cervical ripening balloon. Second stage of labor was notable for a fever to 38.7C, and she was started on Gentamicin and Clindamycin. Clinda was continued until 24 hrs . The delivery was otherwise uncomplicated. , the patient has had normal vital signs and remained afebrile. On the day of discharge, she has been afebrile over 36 hrs, ambulating, tolerating a regular diet, voiding well, and notes lochia decreasing. She has been bonding well with the baby and breast- feeding without complications. ALLERGIES Allergies Allergy/AdvReac Type Severity Reaction Status Date / Time Penicillins Allergy Intermediate Rash Verified 07/20/24 13:15 MEDICATIONS Ambulatory Orders Medication Instructions Recorded Confirmed acetaminophen 325 mg tablet 325 mg PO Q6H PRN fever or pain 07/20/24 08/18/24 (Tylenol) polyethylene glycol 3350 17 gram 17 g PO DAILY PRN constipation 08/18/24 08/18/24 oral powder packet (Miralax) ibuprofen 600 mg tablet 600 mg PO Q6HR PRN Moderate Pain 08/20/24 (Level 4-6) #30 tabs PHYSICAL EXAM AT DISCHARGE General Appearance: positive No acute distress and Alert Eyes Bilateral: positive Normal inspection Neck: positive Nml inspection Respiratory: positive Breath sounds nml Cardiovascular: positive Regular rate & rhythm Abdomen: positive Non-tender and Other (Uterus firm at U-1, nontender) Skin: positive Color nml Extremities: positive Pedal edema (Trace) Neurologic/Psychiatric: positive Oriented x3, Motor nml and Mood/affect nml LABS 08/17/24 18:25 08/17/24 18:15 QUALITY (Female Hip Fx Only) Was patient sent home on osteoporosis medication?: No FOLLOW UP Follow Up: 1-2 wks for visit in clinic TIME SPENT Time Spent in Discharge (Minutes): 25 Discharge Plan Discharge Patient Disposition: Home, Self Care Condition: Good Medically Cleared Date:: 08/20/24 Prescriptions: New ibuprofen 600 mg Tablet 600 mg PO Q6HR PRN (Reason: Moderate Pain (Level 4-6)) Qty: 30 0RF Rx Instructions: Patient plans to take OTC medication Continued polyethylene glycol 3350 [Miralax] 17 gram powder in packet 17 g PO DAILY PRN (Reason: constipation) acetaminophen [Tylenol] 325 mg tablet 325 mg PO Q6H PRN (Reason: fever or pain) Activity Restrictions: Additional Comments Activity Restrictions/Additional Instructions: -Pelvic rest x 6 wks -Limited/light exercise starting at 6 wks -Higher impact exercise starting at 12 wks Diet: Regular Print Language: Luxembourgish Patient Instructions: Vaginal After, Depression Follow-up Care: Delmer Gupta MD [Primary Care Provider] - (Call clinic to schedule appt in 1-2 wks)"
--- NOTE | 2024-08-20 12:18 | Labor Flowsheet ---
Labor Flowsheet Datetime Report Generated by CPN: 08/20/2024 12:18 Datetime: 08/20/2024 09:12 VITAL SIGNS NBP Sys/Patt/Mean (mmHg): 109 : 70 : 79 Pulse: 64 Datetime: 08/19/2024 01:45 Respirations: 18 SpO2 (%): 38 Datetime: 08/19/2024 01:00 Stage of : Recovery PAIN Pain Scale: 2 Pain Presence: Intermittent Pain Type: Cramping Pain Location: Abdomen Epidural Procedure Other: Cath Removed; Cath Intact Datetime: 08/18/2024 22:30 LaborFlag: Labor Datetime: 08/18/2024 22:15 UTERINE ACTIVITY Monitor Mode: Palpation Frequency (min): 2-4 Quality: Strong Duration (sec): 60-90 Pattern: Normal: <= 5 Contractions in 10 Minutes Resting Tone (Palpate): Relaxed ASSESSMENT A Monitor Mode: External US FHR Baseline Rate : 160 FHR Baseline Changes: Tachycardia Variability: Moderate 6-25 bpm Accelerations: 15X15 Decelerations: Early Comments: of viable nb boy Datetime: 08/18/2024 22:00 Contraction Comments: IUPC removed by DR Salmeron Datetime: 08/18/2024 21:45 [place] Units (mmHg): 80 Datetime: 08/18/2024 21:42 Temperature (C): 38.7 Temperature Route: Oral Datetime: 08/18/2024 21:15 Pitocin Checklist: At Least 1 Acceleration of 15 bpm x 15 Seconds in 30 Minutes or Adequate Variabi lity; No More than 1 Late Deceleration Occurred in Past 30 Minutes; No More than 2 Variable Decelerat ions > 60 Seconds in Duration and decreasing >60 bpm in 30 minutes; No More than 5 Uterine Contractio ns in 10 Minutes for any 20 Minute Interval; Uterus Palpates Soft between Contractions Datetime: 08/18/2024 21:13 Antibiotics: Gentamicin IV (mg) @ 262mg Datetime: 08/18/2024 21:08 Antiemetics/Antacids: Zofran (mg) @ 4 Datetime: 08/18/2024 20:45 Actions for Decelerations: Pitocin Off; IV Bolus; Sterile Vaginal Exam; Provider Notified Datetime: 08/18/2024 20:44 Provider Notified (Name): Faviola Communication Comments: temp 100.8 Datetime: 08/18/2024 20:37 STAGE 2 Pushing Position: Pushing with Contractions; Pushing Lithotomy Pushing Progress: Descent with Pushing COMMUNICATION Communication: Provider at Bedside Datetime: 08/18/2024 20:36 Analgesics/Sedatives: Tylenol (mg) @ 650mg@2035 Datetime: 08/18/2024 20:30 Category: Category II I/O Interventions: Olivas Discontinued Datetime: 08/18/2024 20:28 Patient Care Comments: iv bolus infused Datetime: 08/18/2024 20:09 VAGINAL EXAM Dilatation (cm): 10.0 Station: 2 Exam by: DAO Gómez Strip Reviewed by: DAO Jacob Notification Reason: Status Update; Labor Status; Maternal Vital Sign Change Datetime: 08/18/2024 19:30 Monitor Interventions for UA: IUPC Inserted Resting Tone IUP (mmHg): 15 Datetime: 08/18/2024 18:44 MEDICATIONS Pitocin (milliunits): Started @ 2 Datetime: 08/18/2024 18:05 Effacement (%): 90 Datetime: 08/18/2024 16:30 Medication Comments: 25 mg diphenhydramine IVP Datetime: 08/18/2024 14:41 PATIENT CARE IV/Blood Work: IV Bolus Started Datetime: 08/18/2024 13:54 Anesthesia Comments: test dose Datetime: 08/18/2024 13:53 ANESTHESIA Epidural Procedure: Cath Placed Datetime: 08/18/2024 12:45 Vaginal Bleeding: Normal Show Cervix, Consistency: Soft Cervix, Position: Midposition Datetime: 08/18/2024 11:52 Membrane Status: Ruptured Membranes Rupture Method: Spontaneous Amniotic Fluid Color: Clear Amniotic Fluid Amount: Moderate Datetime: 08/18/2024 11:11 Patient Position/Activity: Left Lateral Datetime: 08/18/2024 06:30 MATERNAL ASSESSMENT Level of Consciousness: Alert Headache: Denies Nausea/Vomiting: Denies RUQ Epigastric Pain: Denies Oxygen Method: Room Air Datetime: 08/18/2024 06:00 Pain Coping: Sleeping Datetime: 08/18/2024 05:30 Pain Assessment Comments: resting comfortably Datetime: 08/18/2024 05:26 Cervical Ripening Agents: Olivas Balloon; Cytotec @ Datetime: 08/18/2024 05:00 Monitor Interventions for FHR: Ultrasound Adjusted Datetime: 08/18/2024 01:09 Membranes Ruptured Date/Time: 08/18/2024 11:52 Amniotic Fluid Odor: Normal Datetime: 08/17/2024 19:29 DTR's/Clonus: DTRs 2+; No Clonus Breath Sounds, Left: Clear and Equal Breath Sounds, Right: Clear and Equal Datetime: 08/17/2024 19:00 TEACHING Instructional Method: Verbal Plan of Care: Plan of Care Discussed; Induction Unit Routine: [place] to Room; Call Velasquez; Bed Labor/Induction: Cervical Ripening Medications: Cervical Ripening
== END 2024-08-20 12:17 | disposition home or self-care (01) | DRG 805 ==
LOC: WFO 17:19 → FBP 17:19
PROVIDERS: ADMIT Obstetrics & Gynecology; ATTEND Obstetrics & Gynecology
DX: Z3A.39 39 weeks gestation of pregnancy; O76 Abnormality in fetal heart rate and rhythm complicating labor and delivery; O70.0 First degree perineal laceration during delivery; Z37.0 Single live birth; O41.1230 Chorioamnionitis, third trimester, not applicable or unspecified